=== PATIENT | female | born 1965 | race Caucasian/White ===

== ENCOUNTER 2018-10-29 02:14 | Emergency (ER) | payer MEDICAID ==
[~2018-10-29] VITALS: Ht 172.7 cm; Wt 65.8 kg
[2018-10-29 02:25] VITALS: BP 156/65
--- NOTE | 2018-10-29 02:25 | NUR ---
ER MD AT BEDSIDE AT THIS TIME
[2018-10-29] MEDS ORDERED: ACETAMINOPHEN 325 MG TAB PO ONE (02:30)
--- NOTE | 2018-10-29 02:30 | NUR ---
PT BIB SELF C/O RIGHT WRIST PAIN 04/23 X1 DAY. DENIES TRAUMA. DEFORMITY IN RIGHT WRIST NOTED. CMS INTACT BILAT UPPER EXTREMITIES. VSS. ER MD TO SEE PT. WILL CONTINUE TO MONITOR. HS: STROKE X2 YEARS AGO RX: IBUPROFEN
[2018-10-29 02:41] VITALS: BP 156/65
== END 2018-10-29 02:41 | disposition home or self-care (01) ==
LOC: MED 02:14
DX: M67.431 Ganglion, right wrist (principal); Z86.73 Personal history of transient ischemic attack (TIA), and cerebral infarction without residual deficits; Z88.1 Allergy status to other antibiotic agents
CPT/HCPCS: 99282